=== PATIENT | male | born 1985 | race American Indian/Alaskan Native ===

== ENCOUNTER 2017-06-12 08:32 | Emergency (ER) | payer MEDICARE, OTHER ==
[2017-06-12 08:32] VITALS: BMI 14.8
[2017-06-12 08:34] VITALS: BP 94/61; PULSE 89; RESP 18; TEMP 97.9; O2SAT 100
[2017-06-12] MEDS ORDERED: Sodium Chloride 0.9% 1,000 ML IV ONE (08:50)
--- NOTE | 2017-06-12 09:12 | C.PDOC ---
History Of Present Illness 32 y/o male, with history of chronic pancreatitis, presents to the ER complaining of abdominal pain, nausea, and vomiting which has been present for 4 days. Patient reports that he is on a transplant list for his pancreas. Of note, patient states that he has visited [facility] numerous times in the past. Time Seen by Provider: 06/12/17 08:43 Chief Complaint (Nursing): Abdominal Pain History Per: Patient History/Exam Limitations: no limitations Onset/Duration Of Symptoms: Days Current Symptoms Are (Timing): Still Present Severity: Moderate Associated Symptoms: Nausea, Vomiting Past Medical History Reviewed: Historical Data, Nursing Documentation, Vital Signs Vital Signs: Last Vital Signs Temp 97.9 F 06/12/17 08:33 Pulse 89 06/12/17 08:33 Resp 18 06/12/17 08:33 BP 94/61 L 06/12/17 08:33 Pulse Ox 100 06/12/17 15:18 - Medical History PMH: Diabetes (IDDM), Pancreatitis (CHRONIC), Chronic Pain Denies: Alzheimer's Disease, Anemia, HIV, HTN, Hypercholesterolemia, Migraine , Mitral Valve Prolapse, Multiple Sclerosis, Osteoporosis, Parkinson's Disease, Peripheral Edema, Pneumonia, Chronic Kidney Disease Surgical History: Cholecystectomy Family History: States: No Known Family Hx - Social History Hx Tobacco Use: No Hx Alcohol Use: No Hx Substance Use: No - Immunization History Hx Tetanus Toxoid Vaccination: Yes Hx Influenza Vaccination: No Hx Pneumococcal Vaccination: No Review Of Systems Except As Marked, All Systems Reviewed And Found Negative. Constitutional: Negative for: Fever, Chills Gastrointestinal: Positive for: Nausea, Vomiting, Abdominal Pain. Negative for : Diarrhea Physical Exam - Physical Exam Appears: Non-toxic, No Acute Distress, Other (resting comfortably) Skin: Normal Color, Warm Head: Atraumatic, Normacephalic Eye(s): bilateral: Normal Inspection, PERRL Nose: Normal Oral Mucosa: Moist Neck: Supple Chest: Symmetrical Cardiovascular: Rhythm Regular Respiratory: Normal Breath Sounds, No Accessory Muscle Use, No Rales, No Rhonchi , No Wheezing Gastrointestinal/Abdominal: Normal Exam, Soft, Tenderness (mild epigastric tenderness), No Guarding, No Rebound Extremity: Normal ROM Neurological/Psych: Oriented x3, Normal Speech, Normal Cognition, Normal Motor, Normal Sensation ED Course And Treatment O2 Sat by Pulse Oximetry: 100 (RA) Pulse Ox Interpretation: Normal Medical Decision Making Medical Decision Making: Plan: --Labs --Urinalysis Updates: -- Patient eloped after my eval Disposition - Disposition Disposition: ELOPEMENT - ER ONLY Disposition Time: 10:00 Condition: UNKNOWN Forms: [facility] (Azerbaijani) - Clinical Impression Clinical Impression: Abdominal pain - Scribe Statement The provider has reviewed the documentation as recorded by the Kaylieibe Rodney Butts Provider Attestation: All medical record entries made by the Kaylieibavni were at my direction and personally dictated by me. I have reviewed the chart and agree that the record accurately reflects my personal performance of the history, physical exam, medical decision making, and the department course for this patient. I have also personally directed, reviewed, and agree with the discharge instructions and disposition.
== END 2017-06-12 09:06 | disposition left against medical advice (07) ==
LOC: C.ER 08:32
DX: R10.9 Unspecified abdominal pain (principal); E11.9 Type 2 diabetes mellitus without complications; Z79.4 Long term (current) use of insulin

== ENCOUNTER 2017-09-15 16:27 | Inpatient (IN) | payer MEDICARE, OTHER ==
[2017-09-15 16:27] VITALS: BMI 14.8
[2017-09-15] MEDS ORDERED: Dextrose 50% SYRINGE Inj (50 ml) ONE (16:49)
--- NOTE | 2017-09-15 16:50 | C.PDOC ---
History Of Present Illness 32 y/o male brought to ED by his aunt after he left [facility] today AMA. Patient was inpatient for chronic belly pain and uncontrolled diabetes. He reports his blood sugar was in the 700s and he left AMA because he wasn't given enough narcotics. Patient has Hx of narcotic abuse and pancreatitis. [employer] patient had a seizure and his blood sugar was 39 so he was administered D-50 and showed rapid improvement. After few minutes back to baseline patient immediately demanded narcotics and Benadryl. Denies any other physical complaints. Time Seen by Provider: 09/15/17 16:47 Chief Complaint (Nursing): Altered Mental Status History Per: Patient, Family (Aunt) History/Exam Limitations: Clinical Condition Onset/Duration Of Symptoms: Hrs Current Symptoms Are (Timing): Still Present Usual Baseline: Alert Oriented Exacerbating Factor(s): Diabetic Use Of Anticoag/Antiplatelets: Unknown Speech Is: Normal Recent travel outside of the [place]: No Past Medical History Reviewed: Historical Data, Nursing Documentation, Vital Signs Vital Signs: Last Vital Signs Temp 97.6 F 09/15/17 23:35 Pulse 77 09/15/17 23:35 Resp 20 09/15/17 23:35 BP 101/59 L 09/15/17 23:35 Pulse Ox 100 09/15/17 23:35 - Medical History PMH: Diabetes (IDDM), Pancreatitis (CHRONIC), Chronic Pain Surgical History: Cholecystectomy Family History: States: No Known Family Hx - Social History Hx Tobacco Use: No Hx Alcohol Use: No Hx Substance Use: No - Immunization History Hx Tetanus Toxoid Vaccination: Yes Hx Influenza Vaccination: No Hx Pneumococcal Vaccination: No Review Of Systems Constitutional: Negative for: Fever, Chills Cardiovascular: Negative for: Chest Pain Respiratory: Negative for: Shortness of Breath Gastrointestinal: Negative for: Nausea, Vomiting, Diarrhea Skin: Negative for: Rash Neurological: Negative for: Weakness, Numbness Psych: Negative for: Suicidal ideation Physical Exam - Physical Exam Appears: Non-toxic, Other (Ill; Thin) Skin: Warm, Dry Head: Atraumatic, Normacephalic Eye(s): bilateral: Normal Inspection, PERRL, EOMI Oral Mucosa: Moist Neck: Supple Chest: Symmetrical, No Tenderness Cardiovascular: Rhythm Regular Respiratory: No Decreased Breath Sounds, No Rales, No Rhonchi, No Wheezing Gastrointestinal/Abdominal: Normal Exam, Soft, No Tenderness, No Distention, No Guarding, No Rebound Extremity: Normal ROM, No Pedal Edema, No Deformity Extremity: Bilateral: Normal Color And Temperature, Normal ROM Neurological/Psych: Oriented x3, Normal Speech, Normal Cognition, Other (no focal deficits) Gait: Steady ED Course And Treatment - Laboratory Results Result Diagrams: 09/15/17 17:15 09/15/17 17:15 Lab Interpretation: Abnormal (K+ 2.7 low, Phos 0.6 low) ECG: Interpreted By Me ECG Rhythm: Sinus Rhythm ECG Interpretation: Normal Rate From EC O2 Sat by Pulse Oximetry: 99 (RA) Pulse Ox Interpretation: Normal - Radiology CXR: Interpreted by Me CXR Interpretation: Yes: No Acute Disease Progress Note: pt incessantly demanding benadryl and narcotics, though pt seems pain-free. Argumentative, tangential, repeatedly threatening to leave AMA. AMA papers filled out and shared w pt who refuses to sign. pt incessantly asking nursing and doctor to bedside without new questions Medical Decision Making Medical Decision Making: hypoglycemia seizure electrolyte abnormalities: low phos/mag/K+ repleat Narcotics Dependence: significant drug-seeking behavior in ED ? related to chronic pancreatitis but normal lipase now. Administered Benadryl, IV fluids and Dextrose. Ordered EKG, blood work, and CXR. Disposition Doctor Will See Patient In The: Hospital Counseled Patient/Family Regarding: Studies Performed, Diagnosis - Disposition Disposition: HOSPITALIZED Disposition Time: 17:56 Condition: GOOD - Clinical Impression Clinical Impression: Opioid type dependence, Seizure, Hypoglycemia associated with diabetes, Electrolyte abnormality - Scribe Statement The provider has reviewed the documentation as recorded by the Dawn Tsang All medical record entries made by the Scribavni were at my direction and personally dictated by me. I have reviewed the chart and agree that the record accurately reflects my personal performance of the history, physical exam, medical decision making, and the department course for this patient. I have also personally directed, reviewed, and agree with the discharge instructions and disposition.
[2017-09-15] MEDS ORDERED: Sodium Chloride 0.9% 1,000 ML IV ONE (16:52)
[2017-09-15] MEDS ORDERED: Dextrose 50% SYRINGE Inj (50 ml) IVP STA (17:11)
[2017-09-15 17:18] LABS: BASO % 0.2 % (0.0-2.0); EOS # 0.1 K/uL (0.0-0.7); EOS % 1.2 % (0.0-4.0); HEMOGLOBIN 9.8 g/dL (12.0-18.0); LYMPH # 1.6 K/uL (1.0-4.3); LYMPH % 17.6 % (20.0-40.0); MEAN CELL VOLUME 85.6 fL (80.0-94.0); MEAN CORPUSCULAR HGB CONC 33.9 g/dL (33.0-37.0); MEAN PLATELET VOLUME 8.8 fL (7.2-11.7); MONO # 0.5 K/uL (0.0-0.8); MONO % 5.4 % (0.0-10.0); NEUT # 6.7 K/uL (1.8-7.0); NEUT % 75.6 % (50.0-75.0); NRBC % 0.1 % (0.0-2.0); RBC 3.39 Mil/uL (4.40-5.90); RED CELL DISTRIBUTION WIDTH 14.3 % (11.5-14.5); WHITE BLOOD COUNT 8.9 K/uL (4.8-10.8)
[2017-09-15] MEDS ORDERED: Sodium Chloride 0.9% 1,000 ML ONE (17:19)
[2017-09-15] MEDS ORDERED: Potassium Ch 20mEq in D5W 1,000 ML IV STA (17:24)
[2017-09-15] MEDS ORDERED: Dextrose 5%/0.9% NS 1,000 ML IV ONE (17:32)
[2017-09-15 17:36] LABS: ALB/GLOB RATIO 0.9 (1.0-2.1); ALBUMIN 2.5 g/dL (3.5-5.0); ALT/SGPT 20 U/L (21-72); AST/SGOT 34 U/L (17-59); BLOOD UREA NITROGEN 2 mg/dL (9-20); CALCIUM 7.1 mg/dl (8.6-10.4); GFR AFRICAN-AMERICAN > 60; GFR NON-AFRICAN AMERICAN > 60
[2017-09-15] MEDS ORDERED: Potassium Phosphate 15 MMOLE in Dextrose 5% In Water 250 ML IVPB STA ×2 (17:48→18:13)
[2017-09-15 18:17] LABS: LIPASE < 10 U/L (23-300)
[2017-09-15 19:44] LABS: SQUAMOUS EPITHIAL 2 /hpf (0-5); URINE BILIRUBIN NEGATIVE (NEGATIVE); URINE BLOOD NEGATIVE (NEGATIVE); URINE CLARITY Hazy (Clear); URINE COLOR Yellow (YELLOW); URINE GLUCOSE (UA) 3+ mg/dL (Normal); URINE LEUKOCYTE ESTERASE 2+ Leu/uL (Negative); URINE PROTEIN 1+ mg/dL (NEGATIVE); URINE UROBILINOGEN NORMAL mg/dL (0.2-1.0)
[2017-09-15 19:59] LABS: BARBITURATES, UR NEGATIVE (NEGATIVE); BENZODIAZEPINES, UR NEGATIVE (NEGATIVE); PHENCYCLIDINE, UR NEGATIVE (NEGATIVE)
[2017-09-15 20:03] LABS: OPIATES, UR POSITIVE (NEGATIVE)
[2017-09-15 21:26] VITALS: RESP 20
[2017-09-15] MEDS ORDERED: DiphenhydrAMINE 50 mg/ml Inj IVP ONE (21:30)
[2017-09-16] MEDS ORDERED: DiphenhydrAMINE 50 mg/ml Inj IVP ONE (02:15)
[2017-09-16] MEDS: Potassium Phosphate 15 MMOLE in Sodium Chloride 0.9% 250 ML IVPB SCH ×2 (02:34→07:06)
[2017-09-16] MEDS ORDERED: DiphenhydrAMINE 50 mg/ml Inj IVP STA (09:16)
[2017-09-16 09:37] VITALS: BP 108/69; PULSE 76; TEMP 97.5; O2SAT 96
[2017-09-16] MEDS ORDERED: (Novolog) Insulin Aspart, Recombinant 100 u/ml 10 ml vial SC SCH ×2 (11:30)
[2017-09-16] MEDS ORDERED: Naloxone 0.4 mg/ml Inj (Adult) IVP ONE (12:35)
[2017-09-16] MEDS ORDERED: Sodium Chloride 0.9% 1,000 ML IV ONE (12:36)
--- NOTE | 2017-09-16 12:44 | RAD ---
PROCEDURE: CHEST RADIOGRAPH, 1 VIEW HISTORY: Diabetic COMPARISON: Comparison made with chest radiograph 05/21/2015 FINDINGS: In situ right subclavian MediPort with tip in the SVC. LUNGS: Clear. PLEURA: No pneumothorax or pleural fluid seen. CARDIOVASCULAR: Normal. OSSEOUS STRUCTURES: No significant abnormalities. VISUALIZED UPPER ABDOMEN: Normal. OTHER FINDINGS: None. IMPRESSION: No active disease.
--- NOTE | 2017-09-16 13:01 | PCM.RRT ---
<Shagufta Colon - Last Filed: 09/16/17 12:53> INSTRUMENT ROOM TECHNICIAN Nurses Assessment - Situation Date: 09/16/17 Time INSTRUMENT ROOM TECHNICIAN was called: 12:31 INSTRUMENT ROOM TECHNICIAN Location:: 6T Med/Surg - Constitutional Appears: Non-toxic - Head Head Exam: ATRAUMATIC, NORMOCEPHALIC - Respiratory Exam Respiratory Exam: Clear to Ausculation Bilateral. absent: Rales, Rhonchi, Wheezes - Cardiovascular Exam Cardiovascular Exam: REGULAR RHYTHM, +S1, +S2. absent: Gallop, Rubs, Murmur - GI/Abdominal Exam GI & Abdominal Exam: Soft, Normal Bowel Sounds. absent: Distended, Firm, Guarding, Rigid, Tenderness - Neurological Exam Neurological Exam: absent: Alert, Awake - Extremities Exam Extremities Exam: absent: Pedal Edema, Tenderness Plan - Assessment of Findings&Treatment Plan 32 year old male PMHx of uncontrolled diabetes and narcotic abuse admitted for AMS has Alexis Medina called for unresponsiveness. Patient had pulse and was breathing without difficulty. Code Blue cancelled and changed to INSTRUMENT ROOM TECHNICIAN at 12:31. INSTRUMENT ROOM TECHNICIAN was called by nurse. Patient was not responding to verbal or painful stimuli. Patient was given stat order of Narcan 4 mg IVP and patient responded immediately. Mental status returned to baseline. Vital signs were as follows: HR 90, BP 109/70, 100% RA, Blood sugar 211. Patient was given 1 L bolus NS as well. Patient is noted to be hypokelemic and hypophosphotemia yesterday on admission. Patient had replacement IV KPhos ordered but per nurse, pt kept disconnecting the IV line. CBC, CMP, Mg, Phos, UDS ordered. <Alfred Brooks - Last Filed: 09/16/17 14:05> Attending/Attestation - Attestation I have personally seen and examined this patient.: Yes I have fully participated in the care of the patient.: Yes I have reviewed all pertinent clinical information, including history, physical exam and plan: Yes Notes (Text): 09/16/17 14:02 Medical hospitalist: Initially a ALEXIS MEDINA was called and when we came to the room he was observed to be breathing and I was able to feel a pulse. Per staff the patient was recently walking in the hallway and was found AMS. His pupils were very dilated bilaterally He was given narcan x 1 and shortly thereafter he became much more awake and alert. He was aurging with us with reguards to lab work He wanted something for his ongoing pain He did not want to give a UDS, however in the end he agreed to it and did For now please stop the IV benadryl. Per staff, this patient is known to be going to several hospitals. Thank you Alfred Brooks
[2017-09-16 13:18] LABS: BASO % 0.4 % (0.0-2.0); EOS # 0.1 K/uL (0.0-0.7); EOS % 1.8 % (0.0-4.0); HEMOGLOBIN 11.4 g/dL (12.0-18.0); LYMPH # 1.9 K/uL (1.0-4.3); LYMPH % 26.8 % (20.0-40.0); MEAN CELL VOLUME 86.5 fL (80.0-94.0); MEAN CORPUSCULAR HEMOGLOBIN 29.4 pg (27.0-31.0); MEAN CORPUSCULAR HGB CONC 34.1 g/dL (33.0-37.0); MEAN PLATELET VOLUME 9.5 fL (7.2-11.7); MONO # 0.3 K/uL (0.0-0.8); MONO % 4.7 % (0.0-10.0); NEUT # 4.6 K/uL (1.8-7.0); NEUT % 66.3 % (50.0-75.0); RBC 3.88 Mil/uL (4.40-5.90); RED CELL DISTRIBUTION WIDTH 14.9 % (11.5-14.5); WHITE BLOOD COUNT 6.9 K/uL (4.8-10.8)
[2017-09-16 13:35] LABS: BARBITURATES, UR NEGATIVE (NEGATIVE); BENZODIAZEPINES, UR NEGATIVE (NEGATIVE); PHENCYCLIDINE, UR NEGATIVE (NEGATIVE)
[2017-09-16 13:50] LABS: ALB/GLOB RATIO 1.1 (1.0-2.1); ALBUMIN 3.2 g/dL (3.5-5.0); ALT/SGPT 26 U/L (21-72); AST/SGOT 42 U/L (17-59); BLOOD UREA NITROGEN < 2 mg/dL (9-20); GFR AFRICAN-AMERICAN > 60; GFR NON-AFRICAN AMERICAN > 60
[2017-09-16 13:52] LABS: OPIATES, UR POSITIVE (NEGATIVE)
--- NOTE | 2017-09-16 20:55 | CON ---
DATE: 09/16/2017 ENDOCRINOLOGY CONSULTATION LOCATION: Room 665. HISTORY OF PRESENT ILLNESS: This is a 32-year-old male with known history of type 1 insulin-dependent diabetes with extremely poor adherence to his insulin regimen and actually signed out yesterday against medical advise from the [facility] in [place] and presented to [facility] today on narcotic analgesics and pain management and was found to have symptomatic hypoglycemia related to nil oral intake with meals as noted. Admits to vague upper abdominal pains and lower back pains as noted. PAST MEDICAL HISTORY: As mentioned above, history of type 1 insulin-dependent diabetes on a combination of Levemir given as 20 units at bedtime with Humalog or NovoLog given as 6 units t.i.d. before meals as ordered. History of hypertension and dyslipidemia. FAMILY HISTORY: Positive for diabetes and hypertension. SOCIAL HISTORY: The patient has a supportive family, but is extremely dependent on narcotic analgesics for pain management both for in and outpatient as noted. REVIEW OF SYSTEMS: As mentioned above admits to generalized body weakness with easy fatigability and tiredness and suboptimal energy level, admits to visual blurring and bifrontal headaches. No chest pain, palpitations or PND. His oral intake has been variable with nausea, dyspepsia and vague upper abdominal pains. Also admits to episodic bouts of vomiting, worse on the day of admission. No alterations in bowel and urinary patterns. PHYSICAL EXAMINATION: GENERAL: This is an average-built male in no apparent distress. VITAL SIGNS: Blood pressure 144/80, pulse of 70 beats per minute and regular, temperature 98, respirations 20, height is 5 feet 8 inches, weight is 113 pounds. HEENT: Head normocephalic. Eyes anicteric with pink conjunctivae. Funduscopy is not possible at this time. Ears, nose and throat are normal. NECK: Supple. Thyroid gland is normal in size. No carotid bruits or cervical adenopathy. CARDIOPULMONARY: Some adynamic precordium. S1, S2 is rapid and regular. LUNGS: Clear to auscultation. ABDOMEN: Flat, soft with positive bowel sounds. EXTREMITIES: No peripheral edema. Pulses are +2 bilaterally. LABORATORY DATA: Initial chemistry showed a BUN of 2, sodium 139, potassium 2.7, chloride 106, CO2 24, glucose 288 and creatinine 0.5. ASSESSMENT: This is a 32-year-old male with uncontrolled and decompensated type 1 insulin-dependent diabetes, presenting here with symptomatic hypoglycemia and associated neuroglycopenic and hyperadrenergic manifestations related to meal omission with continued use of his insulin regimen as noted given. PLAN OF MANAGEMENT: As discussed with the patient and staff, the imperative need for synchronizing his insulin regimen and his needles cannot be over emphasized at this time. We will continue the modified dosing of his insulin and lower the Levemir to 16 units subcu at bedtime daily to start tonight. We will also lower the NovoLog to 6 units subcu t.i.d. before meals as ordered. We will titrate incrementally as indicated to optimize metabolic control. We will obtain serial chemistries and supplement accordingly as needed. We will follow with you. Christin Adair MD
[2017-09-16] MEDS ORDERED: (Lantus) Insulin Glargine, Recombinant SC SCH (22:00)
== END 2017-09-16 14:35 | disposition left against medical advice (07) | DRG 638 ==
LOC: C.ER 16:27 → C.9E 17:46 → C.6T 20:18
PROVIDERS: ADMIT Internal Medicine Nephrology; ATTEND Internal Medicine Nephrology
DX: E10.649 Type 1 diabetes mellitus with hypoglycemia without coma (principal); K86.1 Other chronic pancreatitis; F11.20 Opioid dependence, uncomplicated; E10.65 Type 1 diabetes mellitus with hyperglycemia; E78.5 Hyperlipidemia, unspecified; I10 Essential (primary) hypertension; R56.9 Unspecified convulsions; Z76.5 Malingerer [conscious simulation]; Z79.4 Long term (current) use of insulin